=== PATIENT | male | born 1995 | race Hispanic/Latino ===

== ENCOUNTER 2019-08-30 14:34 | Emergency (ER) | payer MEDICARE, MEDICAID ==
[2019-08-30 15:10] LABS: #Lymphocytes 0.6 thou/uL (1.20-3.40); #Monocytes 0.2 thou/uL (0.11-0.59); #Neutrophils 6.2 thou/uL (1.40-6.50); %Basophils 0.7 % (0.0-1.0); %Eosinophils 0.3 % (0.0-10.0); %Monocytes 2.6 % (0.0-10.0); %Neutrophils 88.5 % (42.0-75.0); Hemoglobin 11.2 g/dL (14.0-18.0); Mean Corpuscular HGB CONC 31.8 g/dL (32.0-36.0); Mean Corpuscular Hemoglobin 26.7 pg (27.0-31.0); Mean Platelet Volume 9.6 fL (7.4-10.4); Platelet Count 199 thou/uL (130-400); RBC Distribution Width 12.4 % (11.5-14.5); Red Blood Cell (RBC) Count 4.19 mill/uL (4.70-6.10)
[2019-08-30 15:15] LABS: PTT 28.8 sec (22.9-36.1)
[2019-08-30 15:16] LABS: Prothrombin Time 13.1 sec (12.0-14.7)
[2019-08-30 15:30] LABS: Anion Gap 14 mmol/L (10-20); BUN (Urea Nitrogen) 33 mg/dL (8.9-20.6); Calc. Creatinine Clearance 0 mL/min (70-130); Calcium 8.3 mg/dL (7.8-10.44); Carbon Dioxide 26 mmol/L (22-29); Chloride 103 mmol/L (98-107); Estimated GFR-MDRD 19; Glucose 149 mg/dL (70-105); Potassium 3.4 mmol/L (3.5-5.1); Sodium 140 mmol/L (136-145)
--- NOTE | 2019-08-30 16:13 | ULT ---
VASCULAR AND NONVASCULAR ULTRASOUND OF THE LEFT UPPER ARM: 08/30/19 INDICATION: Area of swelling within the left upper arm near an AV graft. TECHNIQUE: Crowe scale, color Doppler with spectral Doppler images were obtained of the left AV graft in both the venous outflow as well as graft itself. There is also surrounding crowe scale and ultrasound images o btained of the soft tissues near the graft site where there is swelling. FINDINGS: Within the region of swelling, is a complex hematoma measuring 3.2 x 3 cm. This is subjacent to the A V graft. There is appropriate flow within the AV graft as well as the outflow venous tract. There is no evidence to suggest the presence of pseudoaneurysm. IMPRESSION: Hematoma seen just subjacent to the left AV graft in the left upper arm in the region of swelling. POS: [facility]
--- NOTE | 2019-09-01 12:07 | EKG ---
Test Reason : Blood Pressure : / mmHG Vent. Rate : 117 BPM Atrial Rate : 117 BPM P-R Int : 144 ms QRS Dur : 080 ms QT Int : 344 ms P-R-T Axes : 053 067 045 degrees QTc Int : 479 ms Sinus tachycardia Otherwise normal ECG Confirmed by ASHLY PALENCIA DO ([id number]), production editor SOFIA THOMAS ([id number]) on 09/01/2019 12:07:03 PM Referred By: Confirmed By:ASHLY PALENCIA DO
== END 2019-08-30 16:36 | disposition home or self-care (01) ==
LOC: ERS 14:34
DX: T82.898A Other specified complication of vascular prosthetic devices, implants and grafts, initial encounter (principal); I12.9 Hypertensive chronic kidney disease with stage 1 through stage 4 chronic kidney disease, or unspecified chronic kidney disease; N18.9 Chronic kidney disease, unspecified; G47.30 Sleep apnea, unspecified; Z79.899 Other long term (current) drug therapy; Z99.2 Dependence on renal dialysis
CPT/HCPCS: 80048; 85025; 85610; 85730; 93005; 93931